=== PATIENT | female | born 1980 | race Caucasian/White ===

== ENCOUNTER 2025-03-20 23:58 | Emergency (ER) | payer MEDICAID ==
[~2025-03-20] VITALS: Ht 162.6 cm; Wt 90.7 kg
--- NOTE | 2025-03-21 00:28 | ED.PDOC ---
History of Present Illness HPI Comments 44-year-old female with no reported PMHx brought in by EMS presents with a chief complaint of flank pain and abdominal pain x 2 hours. Patient states that her pain is localized to her RUQ/Right flank, nonradiating, describes as sharp, and rates her pain a 10/10. Patient was given 50mcg of Fentanyl and brought her pain down to a 7/10. Denies any injuries or trauma prior to onset of symptoms. Patient is primarily Nepalese speaking only. Time Seen by MD: 00:22 Primary Care Provider: NONE Reviewed Notes: Medications, Allergies Allergies: Coded Allergies: NO KNOWN ALLERGIES (Unverified , 09/16/16) Information Source: Emergency Med Personnel Mode of Arrival: EMS Severity: Moderate Timing: Hours Duration: Since onset Prehospital treatment: None Past Medical History PAST MEDICAL HISTORY: Denies Surgical History: Cholecystectomy MAINTENANCE TRAINER History: No Pertinent MAINTENANCE TRAINER History Family History Family History: Unobtainable Social History Smoker: Non-Smoker Alcohol: Denies ETOH Use Drugs: Denies Drug Use Lives In: Home Constitutional: denies: chills, diaphoresis, fatigue, fever, malaise, sweats, weakness, others EENTM: denies: blurred vision, double vision, ear bleeding, ear discharge, ear drainage, ear pain, ear ringing, eye pain, eye redness, hearing loss, mouth pain, mouth swelling, nasal discharge, nose bleeding, nose congestion, nose pain, photophobia, tearing, throat pain, throat swelling, voice changes, others Respiratory: denies: cough, hemoptysis, orthopnea, SOB at rest, shortness of breath, SOB with excertion, stridor, wheezing, others Cardiovascular: denies: chest pain, dizzy spells, diaphoresis, Dyspnea on exertion, edema, irregular heart beat, left arm pain, lightheadedness, palpitat ions, PND, syncope, others Gastrointestinal: reports: abdominal pain; denies: abdomen distended, blood streaked bowels, constipated, diarrhea, dysphagia, difficulty swallowing, hematemesis, melena, nausea, poor appetite, poor fluid intake, rectal bleeding, rectal pain, vomiting, others Genitourinary: denies: abnormal vagina bleeding, burning, dyspareunia, dysuria, flank pain, frequency, hematuria, incontinence, pain, , vagina discharge , urgency, others Neurological: denies: dizziness, fainting, headache, left sided numbness, left sided weakness, numbness, paresthesia, pre-existing deficit, right sided numbness, right sided weakness, seizure, speech problems, tingling, tremors, weakness, others Musculoskeletal: denies: back pain, gout, joint pain, joint swelling, muscle pain, muscle stiffness, neck pain, others Integumetry: denies: bruises, change in color, change in hair/nails, dryness, laceration, lesions, lumps, rash, wounds, others Allergic/Immunocompromised: denies: Difficulty Healing, Frequent Infections, Hives, Itching, others Hematologic/Lymphatic: denies: anemia, blood clots, easy bleeding, easy bruising, swollen glands, others Endocrine: denies: excessive hunger, excessive sweating, excessive thirst, excessive urination, flushing, intolerance to cold, intolerance to heat, unexplained weight gain, unexplained weight loss, others Psychiatric: denies: anxiety, bipolar disorder, depression, hopeless, panic di sorder, schizophrenia, sleepless, suicidal, others All Other Systems: Reviewed and Negative Physical Exam General Appearance: No Apparent Distress, Normal HEENT: Normal ENT Inspection, Pharynx Normal, TMs Normal Neck: Full Range of Motion, Non-Tender, Normal, Normal Inspection Respiratory: Chest Non-Tender, Lungs Clear, No Accessory Muscle Use, No Respiratory Distress, Normal Breath Sounds Cardiovascular: No Edema, No JVD, No Murmur, No Gallop, Normal Peripheral Pulses, Regular Rate/Rhythm Breast Exam: Deferred Gastrointestinal: No Organomegaly, Non Tender, No Pulsatile Mass, Normal Bowel Sounds, Soft Genitalia: Deferred Pelvic: Deferred Rectal: Deferred Extremities: No calf tenderness, Normal capillary refill, Normal inspection, Normal range of motion, Non-tender, No pedal edema Musculoskeletal : Apperance: Normal Neurologic: Alert, optical advisor II-XII nml as Tested, No Motor Deficits, Normal Affect, Normal Mood, No Sensory Deficits Cerebellar Function: Normal Reflexes: Normal Skin: Dry, Normal Color, Warm Lymphatic: No Adenopathy Was a procedure done? Was a procedure done?: No Differential Dx Considerations may include: Urinary tract infection, renal colic, muscle strain X-Ray, Labs, Meds, VS Vital Signs Date Time Temp Pulse Resp B/P (MAP) Pulse Ox O2 Delivery O2 Flow Rate FiO2 4/23/25 00:47 85 20 100 Room Air* 0 21 03/21/25 00:47 99.1 85 20 115/91 (99) 100 99.1 03/21/25 00:38 98.9 84 22 126/71 (89) 100 98.9 03/21/25 00:16 84 Lab Test 03/21/25 01:15 03/21/25 00:20 Range/Units Urine Color Light-yellow Yellow Urine Clarity Clear Clear Urine pH 6.5 5.0-9.0 Urine Specific [place] 1.020 1.001-1.035 Urine Protein Negative Negative Urine Ketones 1+ H Negative Urine Blood 2+ H Negative /uL Urine Nitrite Negative Negative Urine Bilirubin Negative Negative Urine Urobilinogen Normal Negative mg/dL Urine Leukocyte Esterase Trace Negative /uL Urine RBC 2 0 - 4 /hpf Urine Microscopic WBC 3 0-5 /HPF Urine Squamous Epithelial Cells Few <5 /hpf Urine Bacteria None seen None Seen /hpf Urine Glucose Normal Normal mg/dL White Blood Count 7.0 4.4-10.8 10^3/uL Red Blood Count 4.38 4.0-5.20 10^6/uL Hemoglobin 13.3 12.2-16.2 g/dL Hematocrit 38.4 36.0-46.0 % Mean Corpuscular Volume 87.8 80.0-100.0 fL Mean Corpuscular Hemoglobin 30.5 28.0-32.0 pg Mean Corpuscular Hemoglobin Concent 34.7 32.0-36.0 g/dL Red Cell Distribution Width 13.4 11.8-14.3 % Platelet Count 293 140-450 10^3/uL Mean Platelet Volume 8.2 6.9-10.8 fL Neutrophils (%) (Auto) 60.9 37.0-80.0 % Lymphocytes (%) (Auto) 30.8 10.0-50.0 % Monocytes (%) (Auto) 5.6 0.0-12.0 % Eosinophils (%) (Auto) 2.2 0.0-7.0 % Basophils (%) (Auto) 0.5 0.0-2.0 % Neutrophils # (Auto) 4.3 1.6-8.6 10 ^3/uL Lymphocytes # (Auto) 2.2 0.4-5.4 10 ^3/uL Monocytes # (Auto) 0.4 0-1.3 10 ^3/uL Eosinophils # (Auto) 0.2 0-0.8 10 ^3/uL Basophils # (Auto) 0 0-0.2 10 ^3/uL Nucleated Red Blood Cells 0.1 % Sodium Level 141 136-145 mmol/L Potassium Level 3.0 L 3.5-5.1 mmol/L Chloride Level 111 H 98-107 mmol/L Carbon Dioxide Level 18 L 20-31 mmol/L Anion Gap 12 5-15 Blood Urea Nitrogen 10 9-23 mg/dL Creatinine 0.59 0.550-1.02 mg/dL Glomerular Filtration Rate Calc 114 >90 mL/min BUN/Creatinine Ratio 16.9 10.0-20.0 Serum Glucose 128 H 74-106 mg/dL Calcium Level 9.8 8.7-10.4 mg/dL Current Medications Medications (Trade) Dose Ordered Sig/Mely Route Start Time Stop Time Status Last Admin Sodium Chloride 1,000 ml @ 1,000 mls/hr Q1H ONCE IV 03/21/25 00:30 03/21/25 01:29 DC 03/21/25 01:23 Time of 1ST Reevaluation: 00:52 Reevaluation 1ST: Unchanged Patient Education/Counseling: Diagnosis, Treatment, Prognosis Family Education/Counseling: Diagnosis, Treatment, Prognosis Departure 1 Departure Time of Disposition: 02:39 (Patient presented with abdominal pain that was concerning for possible appendicits, gastritis, cholecystitis, colitis, gastroenteritis, or orther possible surgical emergency. Data: 1. I ordered and reviewed the result of at least 3 labs including a CBC, BMP, and Urinalysis. 2. I independently interpreted the following tests: CT Abdoment and Pelvis is concerning for benign abdomen .Risk:This patient has a high risk of morbidity due to further diagnostic testing or treatment and may suffer from an acute abdominal process disorder. Fortunately workup reveals hematuria and patient may have passed a kidney stone and patient can be safely discharged to home with outpatient follow up.) Impression: Primary Impression: Hematuria Qualified Codes: R31.29 - Other microscopic hematuria Disposition: HOME / SELF CARE / HOMELESS Condition: Stable Referrals: KAMERON DALY MD Additional Instructions: You have blood in your urine and may have a kidney stone. You were prescribed flomax. Please take as directed. For pain you can take the followinam: Ibuprofen 400mg with food Noon: Acetaminophen 1000mg 4pm: Ibuprofen 400mg with food 8pm: Acetaminophen 1000mg Please take as directed. You should follow up with your regular doctor or a urologist within one week to ensure you are doing better. If your symptoms worsen or you have any other concerns then please return to the ER. e-Prescriptions Tamsulosin Hcl (Flomax) 0.4 Mg Cap 1 CAP PO DAILY for 14 Days, #30 CAP 11 Refills Prov: ATUL CODY MD 03/21/25 Discharged With: Significant Other Critical Care Note Critical Care Time?: Yes Critical care comment: Intractable abdominal pain Authorized and Performed by: Atul Cody MD Total critical care time: Approximately 38 minutes Due to a high probability of clinically significant, life threatening deterioration, the patient required my highest level of preparedness to intervene emergently and I personally spent this critical care time directly and personally managing the patient. This critical care time included obtaining a history; examining the patient; pulse oximetry; ordering and review of studies; arranging urgent treatment with development of a management plan; evaluation of patient's response to treatment; frequent reassessment; and, discussions with other providers. This critical care time was performed to assess and manage the high probability of imminent, life-threatening deterioration that could result in multi-organ failure. It was exclusive of separately billable procedures and treating other patients and teaching time. Please see my other sections and the rest of the note for further information on patient assessment and treatment. Stability Stability form required: No Heart Score Heart Score: Heart Score Response (Comments) Value History N/A 0 EKG N/A 0 Age N/A 0 Risk Factors N/A 0 Troponin N/A 0 Total 0 I personally scribed for ATUL CODY MD ([email or web address]) on 03/21/25 at 00:28. Electronically submitted by Bar Wells ([email or web address]). ATUL CODY MD Mar 21, 2025 00:28
[2025-03-21] MEDS: ONDANSETRON HCL 4 MG/2 ML VIAL IV ONE (00:30)
[2025-03-21] MEDS: MORPHINE SULFATE 4 MG/ML SYR/VIAL IV ONE (00:30)
[2025-03-21 00:35] LABS: Basophils # (auto) 0 10 ^3/uL (0-0.2); Basophils % (auto) 0.5 % (0.0-2.0); Eosinophils # (auto) 0.2 10 ^3/uL (0-0.8); Eosinophils % (auto) 2.2 % (0.0-7.0); Hematocrit 38.4 % (36.0-46.0); Hemoglobin 13.3 g/dL (12.2-16.2); Lymphocytes # (auto) 2.2 10 ^3/uL (0.4-5.4); Lymphocytes % (auto) 30.8 % (10.0-50.0); Mean Corpuscular Hemoglobin 30.5 pg (28.0-32.0); Mean Corpuscular Hgb Conc. 34.7 g/dL (32.0-36.0); Mean Corpuscular Volume 87.8 fL (80.0-100.0); Monocytes # (auto) 0.4 10 ^3/uL (0-1.3); Monocytes % (auto) 5.6 % (0.0-12.0); Neutrophils # (auto) 4.3 10 ^3/uL (1.6-8.6); Neutrophils % (auto) 60.9 % (37.0-80.0); Nucleated Red Blood Cells % 0.1 %; Platelet Count (auto) 293 10^3/uL (140-450); Red Blood Cells 4.38 10^6/uL (4.0-5.20); Red Cell Distribution Width 13.4 % (11.8-14.3)
[2025-03-21 00:44] LABS: Sodium 141 mmol/L (136-145)
[2025-03-21 00:45] LABS: Anion Gap 12 (5-15); Calcium 9.8 mg/dL (8.7-10.4)
[2025-03-21 00:47] VITALS: PULSE 85; RESP 20; TEMP 99.1; O2SAT 100
[2025-03-21 00:50] LABS: BUN/Creatinine Ratio 16.9 (10.0-20.0); Blood Urea Nitrogen 10 mg/dL (9-23)
[2025-03-21] MEDS: IOHEXOL 300 MG/ML 100ML BOTTLE IJ ONE (00:51)
[2025-03-21 01:01] LABS: Carbon Dioxide 18 mmol/L (20-31); Chloride 111 mmol/L (98-107); Glucose 128 mg/dL (74-106)
[2025-03-21] MEDS: SODIUM CHLORIDE 0.9% 1,000 ML IV ONE (01:23)
[2025-03-21 01:25] LABS: Urine Bacteria None Seen /hpf (None Seen)
--- NOTE | 2025-03-21 01:29 | DVH ---
Exam: CT CT AB PEL WITH IV CON ONLY History: abdominal pain Comparison Study: None available at time of dictation. Technique: Multidetector spiral CT of the abdomen and pelvis was performed from lung bases to pubic s ymphysis. Intravenous contrast was administered during this examination. Portal venous imaging was o btained. Axial, coronal and sagittal multiplanar reformats were performed by the technologist on a [employer] workstation. Radiation Dose : 1. Abdomen/Pelvis: CTDIvol 25.87 mGy, DLP 1356.93 mGy*cm. Findings: Lung Bases: No acute or significant lung base finding. Normal heart size. No pleural or pericardial effusion. Liver: The liver is normal in size. No focal lesions. Normal hepatic vascular enhancement. Gallbladder and Biliary Tree: Gallbladder is surgically absent. Spleen: Unremarkable Pancreas: The pancreas is normal in appearance without focal lesions or abnormal enhancement. Adrenal Glands: Unremarkable Kidneys: Kidneys demonstrate normal symmetric enhancement without focal lesions, calculi or hydroneph rosis. Bladder: Unremarkable Bowel: The stomach is grossly normal in appearance. Small bowel and colon are normal in caliber and d istribution. Normal appendix is visualized in the right lower quadrant without findings of appendicit is. Ascites: Absent Lymphadenopathy: No mesenteric, retroperitoneal or periportal lymphadenopathy. Abdominal Wall and Mesentery: Unremarkable. Vasculature: The visualized abdominal aorta is normal in size and caliber. Abdominal and pelvic vess els demonstrate normal enhancement. Pelvic Organs: Unremarkable Musculoskeletal: No aggressive focal bony lesions, acute fractures or dislocation. IMPRESSION: No acute abdominal or pelvic finding.
[2025-03-21 01:44] LABS: Urine Blood 2+ /uL (Negative); Urine Clarity Clear (Clear); Urine Color Light-Yellow (Yellow); Urine Protein, UAD Negative (Negative); Urine Squamous Epithelial Cell FEW /hpf (<5); Urine Urobilinogen Normal (Negative); Urine WBC 3 /HPF (0-5); Urine pH 6.5 (5.0-9.0)
[2025-03-21] MEDS ORDERED: TAMS-35 PO (02:41)
[2025-03-21 03:00] VITALS: BP 108/66; PULSE 66; RESP 17; O2SAT 98
[2025-03-21] MEDS: TAMSULOSIN HYDROCHLORIDE 0.4 MG CAP PO ONE (03:05)
[2025-03-21] MEDS: KETOROLAC TROMETH 30 MG/ML 1ML VIAL IV ONE (03:05)
--- NOTE | 2025-03-21 06:48 | ECG ---
[facility] Test Date: 2025-03-21 Test Time: 00:16:24 Pat Name: ROBEL DIAMOND Department: ED Room: Gender: F [employer]er: ER : 1980 Requested By: ATUL CODY Order Number: [id number] Reading MD: David Ramos Measurements Intervals [place] Rate: 84 P: 54 MO: 159 QRS: 62 QRSD: 107 T: -49 QT: 475 QTc: 562 Interpretive Statements Sinus rhythm Nonspecific T abnormalities, diffuse leads Prolonged QT interval Electronically Signed On 03-21-2025 13:20:51 PDT by David Ramos Please click the below link to view image of tracing.
== END 2025-03-21 03:45 | disposition home or self-care (01) ==
LOC: ER 23:58 → EDBD 23:59 → ER 03-21 03:41
DX: R31.9 Hematuria, unspecified (principal); Z90.49 Acquired absence of other specified parts of digestive tract
CPT/HCPCS: 36415; 74177; 80048; 81001; 85025; 93005; 96361; 96374; 99285; J1885; J7030; Q9967